=== PATIENT | female | born 1975 | race Caucasian/White ===

== ENCOUNTER 2022-03-21 01:35 | Emergency (ER) | payer SELFPAY ==
[~2022-03-21] VITALS: Ht 172.7 cm; Wt 63.5 kg
[2022-03-21] MEDS ORDERED: TDAP [DIPH/PERTUSSIS/TET] 0.5 ML VIAL IM ONE ×2 (01:45→02:00)
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
--- NOTE | 2022-03-21 02:15 | NUR ---
PT BEING TRANSPORTED TO CT VIA [facility]. WAIVER SIGNED AND PLACED IN PT CHART.
--- NOTE | 2022-03-21 02:15 | NUR ---
PT SIGNED WAIVER; TAKEN TO CT
--- NOTE | 2022-03-21 03:56 | NUR ---
RENTAL MANAGEMENT TRAINEE AT PT'S BEDSIDE
--- NOTE | 2022-03-21 05:43 | NUR ---
Patient discharged to home in stable condition. Written and verbal after care instructions given. Patient verbalizes understanding of instruction.
[2022-03-21 05:44] VITALS: BP 116/84
== END 2022-03-21 05:44 | disposition home or self-care (01) ==
LOC: ER 01:38
DX: S01.81XA Laceration without foreign body of other part of head, initial encounter (principal); F10.129 Alcohol abuse with intoxication, unspecified; Z88.2 Allergy status to sulfonamides; W01.0XXA Fall on same level from slipping, tripping and stumbling without subsequent striking against object, initial encounter; Y93.89 Activity, other specified; Y92.89 Other specified places as the place of occurrence of the external cause; Y99.8 Other external cause status; Y90.9 Presence of alcohol in blood, level not specified
CPT/HCPCS: 36415; 70450-TC; 90715; G0480